=== PATIENT | male | born 1990 | race Caucasian/White ===

== ENCOUNTER 2021-01-04 16:13 | Emergency (ER) | payer BC, SELFPAY ==
--- NOTE | 2021-01-04 16:16 | ED.SKABFB ---
HPI - Skin/Abscess/Foreign Bdy General Chief complaint: Skin/Abscess/Foreign Body Stated complaint: poison cornelius on arms Time Seen by Provider: 01/04/21 16:17 Source: patient and RN notes reviewed History of Present Illness HPI narrative: Patient is a 30-year-old male who presents the urgent care with complaints of poison cornelius to bilateral arms. Patient states that he came in contact with the plant on and he has been using tech new scrub, Benadryl spray and calamine to the area. Patient states it typically takes him weeks for it to go away . No other acute complaints. No acute distress noted. Patient aware of the plan of care. Some parts of this dictation were generated by voice recognition software and may contain typographical and/or grammatical inaccuracies. Related Data Allergies Allergy/AdvReac Type Severity Reaction Status Date / Time iodine Allergy Unknown Rash Verified 01/04/21 16:24 shellfish derived Allergy Unknown Rash Verified 01/04/21 16:24 Review of Systems Review of Systems: Narrative: CONSTITUTIONAL: Denies fever, chills, or sweats. EYES: Denies visual changes, redness, or discharge. ENT: Denies rhinorrhea, congestion, sore throat, or otalgia. CARDIOVASCULAR: Denies chest pain, palpitations, or edema. RESPIRATORY: Denies cough or dyspnea. GASTROINTESTINAL: Denies abdominal pain, nausea, vomiting, or diarrhea. GENITOURINARY: Denies dysuria or hematuria. SKIN: Reports of itchy poison cornelius to bilateral lower arms MUSCULOSKELETAL: Denies back pain, joint pain, or myalgia. NEUROLOGIC: Denies headache, numbness, or weakness. All other systems reviewed are negative, except as documented in HPI. [facility] Family History Family History (Updated 04/22/17 @ 17:04 by DOCTOR UNKNOWN) Father Diabetes mellitus Hypertension Social History Social History Smoking status: Never smoker Alcohol intake: current Comments At the time of my signature, I reviewed and agree with the nursing past medical, surgical, social, and family history. There is no relevant family history pertinent to the patient complaint. Exam Narrative: Exam Narrative: GENERAL: This is a well-nourished, well-developed patient, in no apparent distress. HEAD: normocephalic, atraumatic. EYES: PERRL. Sclera clear/white. Vision is grossly intact. EARS: External ears normal NOSE: External nose normal with no obvious nasal discharge, nares without redness, no rhinorrhea. THROAT: Mucous membranes moist NECK: Neck supple CARDIOVASCULAR: Regular rate and rhythm without murmurs, gallops, or rubs. RESPIRATORY: Clear to auscultation. Breath sounds equal bilaterally. No wheezes, rales, or rhonchi. SKIN: Scattered pruritic vesicular dermatitis noted bilateral lower arms NEURO: awake, alert, and oriented to person, place and time. There were no obvious focal neurologic abnormalities. EXTREMITIES: No clubbing, cyanosis, or edema. Course Vital Signs Vital signs: Vital Signs Temperature 98.3 F 01/04/21 16:20 Pulse Rate 65 01/04/21 16:20 Respiratory Rate 14 01/04/21 16:20 Blood Pressure 150/79 H 01/04/21 16:20 Pulse Oximetry 100 01/04/21 16:20 Temperature 98.3 F 01/04/21 16:25 Pulse Rate 65 01/04/21 16:25 Respiratory Rate 14 01/04/21 16:25 Blood Pressure 150/79 H 01/04/21 16:25 Pulse Oximetry 100 01/04/21 16:25 Reviewed-patient is informed that they may have pre-hypertension or hypertension based on a blood pressure reading in the department. I recommend the patient call the primary care provider listed on their discharge instructions or a physician of their choice this week to arrange follow-up for further evaluation of possible pre-hypertension or hypertension. MDM - Skin/Abscess/Foreign Bdy MDM Narrative Medical decision making narrative: Advised the patient to continue using the [employer] scrub [id number]. Use Benadryl as needed prior to bedtime for itching. Complete the steroid regimen as prescribed. Use the
[2021-01-04 16:20] VITALS: BP 150/79; PULSE 65; RESP 14; TEMP 36.8; O2SAT 100
[2021-01-04 16:25] VITALS: BP 150/79; PULSE 65; RESP 14; TEMP 36.8; O2SAT 100
== END 2021-01-04 16:37 | disposition home or self-care (01) ==
PROVIDERS: Emergency Provider Nurse Practitioner Family; PCP Emergency Medicine
DX: L23.7 Allergic contact dermatitis due to plants, except food (principal)
CPT/HCPCS: 99213; G0463